=== PATIENT | female | born 1985 | race Caucasian/White ===

== ENCOUNTER 2024-05-24 13:59 | Emergency (ER) | payer BC, SELFPAY ==
[2024-05-24 14:03] VITALS: BP 131/82
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
[2024-05-24 16:20] VITALS: BP 111/77
== END 2024-05-24 16:21 | disposition home or self-care (01) ==
LOC: EMR 13:59
PROVIDERS: EMERGENCY PHYSICIAN Student in an Organized Health Care Education/Training Program; FAMILY PHYSICIAN Pediatrics Sports Medicine
DX: S09.90XA Unspecified injury of head, initial encounter (principal); W22.8XXA Striking against or struck by other objects, initial encounter; G93.5 Compression of brain
CPT/HCPCS: 99284; 70450